=== PATIENT | female | born 1985 | race Caucasian/White ===

== ENCOUNTER 2016-08-01 03:05 | Emergency (ER) | payer OTHER ==
[~2016-08-01] VITALS: Ht 157.5 cm; Wt 102.1 kg
[~2016-08-01 03:05] MED LIST: CIPRO500 MG PO; KEFLEX250 MG PO; LOESTRIN 21 1/21 TAB PO; MOTRIN800 M1 PO; ULTRAM50 MG PO
[2016-08-01 03:17] VITALS: BP 126/94
--- NOTE | 2016-08-01 03:51 | NUR ---
AMBULATED TO ER BED 5
--- NOTE | 2016-08-01 03:51 | NUR ---
PATIENT PRESENTS TO ED WITH DYSURIA AND LOW BACK PAIN X 1 WEEK DESPITE ABX GIVEN AT URGENT CARE OF KEFLEX AND CIPRO, KEFLEX HAS BEEN D/C BUT PT STATES SHE IS STILL TAKING CIPRO. 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 SKIN IS PINK/WARM/DRY; AAOX4 WITH EVEN AND STEADY GAIT; LUNGS CLEAR BL; HR EVEN AND REGULAR; PT DENIES ANY FEVER, CP, SOB, OR COUGH AT THIS TIME; PATIENT STATES PAIN OF 8/10 AT THIS TIME; VSS; PATIENT POSITIONED FOR COMFORT; HOB ELEVATED; BEDRAILS UP X2; BED DOWN. ER MD MADE AWARE OF PT STATUS.
--- NOTE | 2016-08-01 04:00 | NUR ---
Patient being evaluated by physician DR PHILLIPS at bedside.
[2016-08-01] MEDS ORDERED: NACL 0.9% 2,000 ML IV ONE (04:45)
[2016-08-01] MEDS ORDERED: cefTRIAXone 1,000 MG VIAL ONE (04:57)
[2016-08-01] MEDS ORDERED: ONDANSETRON 4 MG/2 ML VIAL IVP ONE (05:10)
[2016-08-01] MEDS ORDERED: MORPHINE SULFATE 4 MG/ML SYR IVP ONE (05:10)
--- NOTE | 2016-08-01 07:10 | NUR ---
IV removed, catheter intact and site benign. Applied folded 4x4 gauze and tape to stop bleeding.
[2016-08-01 07:11] VITALS: BP 131/98
--- NOTE | 2016-08-01 07:11 | NUR ---
Patient discharged with v/s stable. Written and verbal after care instructions given and explained. Patient alert, oriented and verbalized understanding of instructions. Ambulatory with steady gait. All questions addressed prior to discharge. ID band removed. Patient advised to follow up with PMD. Rx of ZOFRAN 4MG given. Patient educated on indication of medication including possible reaction and side effects. Opportunity to ask questions provided and answered.
== END 2016-08-01 07:11 | disposition home or self-care (01) ==
LOC: MED 03:05
DX: R10.31 Right lower quadrant pain (principal); R10.11 Right upper quadrant pain; R11.2 Nausea with vomiting, unspecified; R30.0 Dysuria; J45.909 Unspecified asthma, uncomplicated; Z90.5 Acquired absence of kidney; Z88.0 Allergy status to penicillin; Z88.1 Allergy status to other antibiotic agents; Z88.2 Allergy status to sulfonamides; Z88.8 Allergy status to other drugs, medicaments and biological substances
CPT/HCPCS: 36415; 74150; 80053; 81001; 81025; 83690; 85025; 87086; 96365; 96375; 99285; J0696; J2270; J2405; J7030; J7060

== ENCOUNTER 2023-04-30 20:24 | Emergency (ER) | payer MEDICAID, OTHER ==
[~2023-04-30] VITALS: Ht 157.5 cm; Wt 108.9 kg
[~2023-04-30 20:24] MED LIST changes: +CEPH250C16 PO; -CIPRO500 MG PO; +IBUP-974 PO; -KEFLEX250 MG PO; -LOESTRIN 21 1/21 TAB PO; -MOTRIN800 M1 PO; +TRAM-748 PO; -ULTRAM50 MG PO
[2023-04-30 20:53] VITALS: BP 85/69; PULSE 113; RESP 14; TEMP 97.1; O2SAT 100
[2023-04-30 23:31] LABS: BASOPHILS % (AUTO) 0.1 % (0.0-2.0); EOSINOPHILS % (AUTO) 0.3 % (0.0-4.0); HEMATOCRIT 43.6 % (36-48); LYMPHOCYTES % (AUTO) 14.9 % (20.5-51.1); MEAN CORPUSCULAR HEMOGLOBIN 29 pg (27-31); MEAN CORPUSCULAR HGB CONC 35 g/dL (33-37); MEAN CORPUSCULAR VOLUME 84.6 fL (80-94); MONOCYTES # (AUTO) 0.6 K/uL (0.8-1.0); MONOCYTES % (AUTO) 4.8 % (1.7-9.3); NEUTROPHILS # (AUTO) 10.5 K/uL (1.8-7.7); NEUTROPHILS % (AUTO) 79.9 % (42.2-75.2); PLATELET COUNT (AUTO) 231 K/uL (140-450); RED BLOOD CELL COUNT(AUTO) 5.16 MIL/uL (4.20-5.40); RED CELL DISTRIBUTION WIDTH 13.1 % (11.6-13.7); WHITE BLOOD COUNT (AUTO) 13.1 K/uL (4.8-10.8)
[2023-04-30 23:42] LABS: APPEARANCE,URINE SL CLOUDY (CLEAR); BILIRUBIN,URINE 1+ (NEGATIVE); BLOOD, URINE NEGATIVE (NEGATIVE); COLOR,URINE YELLOW (YELLOW); LEUKOCYTE ESTERASE ,URINE 2+ (NEGATIVE); NITRITE, URINE POSITIVE (NEGATIVE); PROTEIN,URINE 2+ (NEGATIVE); UGLUCOSE NEGATIVE (NEGATIVE); UROBILINOGEN,URINE 0.2 EU/dL (0.2 - 1)
[2023-04-30 23:45] LABS: ANION GAP 12.1 (8-16); CALCIUM 9.7 mg/dL (8.5-10.1); CARBON DIOXIDE 31.5 mmol/L (21-32); CREATININE 1.6 mg/dL (0.6-1.3); POTASSIUM 3.6 mmol/L (3.5-5.1)
[2023-04-30 23:50] LABS: ICTOTEST NEGATIVE (NEGATIVE); RBC,URINE 0-5 /HPF (0-5)
[2023-04-30 23:51] LABS: BACTERIA,URINE 3+ /HPF (None Seen); MUCUS,URINE 1+ /LPF (None Seen); SQUAMOUS EPITHELIAL CELL,UR 80-100 /LPF (0-3 (FEW)); TRICHOMONAS,URINE None Seen /HPF (None Seen); YEAST,URINE None Seen /HPF (None Seen)
[2023-05-01] LABS: ALBUMIN 4.5 g/dL (3.4-5.0); BILIRUBIN,DIRECT 0.2 mg/dL (0.0-0.3); THYROID STIMULATING HORMONE 0.8 uIU/mL (0.34-3.74); TOTAL BILIRUBIN 0.7 mg/dL (0.0-1.0); TOTAL PROTEIN, SERUM 9.5 g/dL (6.4-8.2)
[2023-05-01 01:00] VITALS: BP 99/67; PULSE 96; RESP 14; TEMP 97.1; O2SAT 96
[2023-05-01] MEDS ORDERED: CIPR500T4 PO (01:09)
== END 2023-05-01 01:00 | disposition home or self-care (01) ==
LOC: MED 20:24
DX: N39.0 Urinary tract infection, site not specified (principal); J45.909 Unspecified asthma, uncomplicated; I25.10 Atherosclerotic heart disease of native coronary artery without angina pectoris; N18.9 Chronic kidney disease, unspecified; Z88.0 Allergy status to penicillin; Z88.1 Allergy status to other antibiotic agents; Z88.2 Allergy status to sulfonamides; Z88.5 Allergy status to narcotic agent; Z79.1 Long term (current) use of non-steroidal anti-inflammatories (NSAID); Z88.8 Allergy status to other drugs, medicaments and biological substances; Z79.899 Other long term (current) drug therapy
CPT/HCPCS: 36415; 80048; 80076; 81001; 82948; 84443; 85025; 87086; 99283